=== PATIENT | female | born 1975 | race Caucasian/White ===

== ENCOUNTER 2019-02-21 02:55 | Emergency (ER) | payer OTHER ==
[2019-02-21] MEDS ORDERED: NS 1,000 ML IV ONE (03:08)
[2019-02-21] MEDS ORDERED: ONDANSETRON 4 MG/2 ML VIAL IVP ONE (03:08)
[2019-02-21] MEDS ORDERED: HYDROmorphONE/DILAUDID 2 MG/ML INJ IVP ONE (03:08)
--- NOTE | 2019-02-21 03:08 | EDPHY ---
H & P Stated Complaint: R sided abd pain since yesterday-worse lying down Time Seen by Provider: 02/21/19 03:08 HPI/ROS: HPI CHIEF COMPLAINT: Right-sided abdominal pain HISTORY OF PRESENT ILLNESS: Patient is a 44-year-old female she presents emergency room with right-sided abdominal pain since 529 in the morning yesterday morning or close to 24 hr. She describes as sharp stabbing pain located in the right lower quadrant. She denies any back pain. It is worse when she goes to lay flat or go to do a sit-up. Patient denies any chest pain or shortness of breath. Denies urinary symptoms, denies back pain. Denies fever. Main complaint right-sided lower quadrant abdominal pain. Since arriving to the emergency room is gotten better. She states actually now gone. On exam no obvious hernia. Mildly tender to palpation right lower quadrant. No peritoneal signs. Past Medical History: Denies Past Surgical History: Denies Social History: Denies drugs alcohol tobacco. Family History: Denies ROS REVIEW OF SYSTEMS: 10 Systems were reviewed and negative with the exception of the elements mentioned in the history of present illness. Exam Constitutional triage nursing summary reviewed, vital signs reviewed, awake/ alert. Eyes normal conjunctivae and sclera, EOMI, PERRLA. HENT normal inspection, atraumatic, moist mucus membranes, no epistaxis, neck supple/ no meningismus, no raccoon eyes. Respiratory clear to auscultation bilaterally, normal breath sounds, no respiratory distress, no wheezing. Cardiovascular rate normal, regular rhythm, no murmur, no edema, distal pulses normal. Gastrointestinal mildly tender in the right lower quadrant no rebound, no guarding, normal bowel sounds, no distension, no pulsatile mass. Genitourinary no CVA tenderness. Musculoskeletal no midline vertebral tenderness, full range of motion, no calf swelling, no tenderness of extremities, no meningismus, good pulses, neurovascularly intact. Skin pink, warm, & dry, no rash, skin atraumatic. Neurologic awake, alert and oriented x 3, AAOx3, moves all 4 extremities equally, motor intact, sensory intact, CN II-XII intact, normal cerebellar, normal vision, normal speech. Psychiatric normal mood/affect. Heme/Lymph/Immune no lymphadenopathy. Differential Diagnosis: Differential diagnosis includes but is not limited to and in no particular order: Bowel obstruction, appendicitis, gallbladder disease, diverticulitis, colitis, enteritis, perforated viscus, gastritis, GERD , esophagitis, urinary tract infection, pyelonephritis, kidney stones Medical Decision Making: Plan for this patient IV establishment IV fluid bolus , IV Dilaudid 0.5 mg for pain control IV Zofran 4 mg for nausea, basic labs, CT scan abdomen pelvis with IV contrast. Rule out appendicitis or internal hernia. Re-evaluation: 0523: Patient for his me that she wants to leave. She does not want the CT scan. Given that she is having right-sided abdominal pain I highly recommend she has a CT scan abdomen pelvis with IV contrast rule out appendicitis or other life-threatening acute intra-abdominal pathology. However the patient is refusing this. She states she wants to leave it no longer wants an abdominal pain workup. She denies any current abdominal pain. She understands that by leaving right now not proceed him a CT scan there could be an acute pathology that gives her great morbidity, mortality, or life- threatening process in her abdomen cannot be ruled out like appendicitis or AAA. Patient understands by leaving she put herself at risk of , grave morbidity , neurological dysfunction. She has agreed to sign out against medical advice. Risk and benefits of staying and having CT scan in observation has been discussed with her at length. She has capacity make this decision. She understands the risk of leaving against medical advice. I additionally explained that she 1 welcome to come back any time if she has worsening abdominal pain or changes her mind. Source: Patient - Personal History LMP (Females 10-55): 8-14 Days Ago Current Tetanus Diphtheria and Acellular Pertussis (TDAP): No - Medical/Surgical History Hx Asthma: No Hx Chronic Respiratory Disease: No Hx Diabetes: No Hx Cardiac Disease: No Hx Renal Disease: No Hx Cirrhosis: No Hx Alcoholism: No Hx HIV/AIDS: No Hx Splenectomy or Spleen Trauma: No Other PMH: lyme disease - Social History Smoking Status: Former smoker Constitutional: Initial Vital Signs Temperature (C) 37 C 02/21/19 02:59 Heart Rate 81 02/21/19 02:59 Respiratory Rate 16 02/21/19 02:59 Blood Pressure 146/78 H 02/21/19 02:59 O2 Sat (%) 99 02/21/19 02:59 O2 Delivery Mode Room Air Allergies/Adverse Reactions: No Known Allergies Allergy (Unverified 02/21/19 02:58) Home Medications: Medication Instructions Recorded Herbal Medication For Lymes Disease 01/02/13 Medical Decision Making - Data Points Laboratory Results: Laboratory Results 02/21/19 03:30 02/21/19 03:30 02/21/19 02/21/19 02/21/19 03:30 03:30 03:30 WBC RBC Hgb Hct MCV MCH MCHC RDW Plt Count MPV Neut % (Auto) Lymph % (Auto) Island % (Auto) Eos % (Auto) Baso % (Auto) Nucleat RBC Rel Count Absolute Neuts (auto) Absolute Lymphs (auto) Absolute Monos (auto) Absolute Eos (auto) Absolute Basos (auto) Absolute Nucleated RBC Immature Gran % Immature Gran # PT 13.4 SEC SEC (12.0-15.0) INR 1.06 (0.83-1.16) APTT 31.8 SEC SEC (23.0-38.0) VBG Lactic Acid Sodium 137 mEq/L mEq/L (135-145) Potassium 4.0 mEq/L mEq/L (3.5-5.2) Chloride 107 mEq/L mEq/L (97-110) Carbon Dioxide 21 mEq/l L mEq/l (22-31) Anion Gap 9 mEq/L mEq/L (6-14) BUN 10 mg/dL mg/dL (7-23) Creatinine 0.7 mg/dL mg/dL (0.6-1.0) Estimated GFR > 60 Glucose 108 mg/dL H mg/dL (70-100) Calcium 9.6 mg/dL mg/dL (8.5-10.4) Total Bilirubin 0.8 mg/dL mg/dL (0.1-1.4) Conjugated Bilirubin 0.2 mg/dL mg/dL (0.0-0.5) Unconjugated Bilirubin 0.6 mg/dL mg/dL (0.0-1.1) AST 18 IU/L IU/L (14-46) ALT 34 IU/L IU/L (9-52) Alkaline Phosphatase 58 IU/L IU/L (38-126) Total Protein 6.8 g/dL g/dL (6.3-8.2) Albumin 4.3 g/dL g/dL (3.5-5.0) Lipase 227 IU/L IU/L (23-300) Beta HCG, Qual NEGATIVE 02/21/19 02/21/19 03:30 03:30 WBC 6.70 10^3/uL 10^3/uL (3.80-9.50) RBC 4.10 10^6/uL L 10^6/uL (4.18-5.33) Hgb 14.0 g/dL g/dL (12.6-16.3) Hct 40.1 % % (38.0-47.0) MCV 97.8 fL fL (81.5-99.8) MCH 34.1 pg pg (27.9-34.1) MCHC 34.9 g/dL g/dL (32.4-36.7) RDW 12.6 % % (11.5-15.2) Plt Count 366 10^3/uL 10^3/uL (150-400) MPV 9.1 fL fL (8.7-11.7) Neut % (Auto) 56.1 % % (39.3-74.2) Lymph % (Auto) 31.9 % % (15.0-45.0) Island % (Auto) 9.7 % % (4.5-13.0) Eos % (Auto) 1.2 % % (0.6-7.6) Baso % (Auto) 1.0 % % (0.3-1.7) Nucleat RBC Rel Count 0.0 % % (0.0-0.2) Absolute Neuts (auto) 3.75 10^3/uL 10^3/uL (1.70-6.50) Absolute Lymphs (auto) 2.14 10^3/uL 10^3/uL (1.00-3.00) Absolute Monos (auto) 0.65 10^3/uL 10^3/uL (0.30-0.80) Absolute Eos (auto) 0.08 10^3/uL 10^3/uL (0.03-0.40) Absolute Basos (auto) 0.07 10^3/uL 10^3/uL (0.02-0.10) Absolute Nucleated RBC 0.00 10^3/uL 10^3/uL (0-0.01) Immature Gran % 0.1 % % (0.0-1.1) Immature Gran # 0.01 10^3/uL 10^3/uL (0.00-0.10) PT INR APTT VBG Lactic Acid 1.1 mmol/L mmol/L (0.7-2.1) Sodium Potassium Chloride Carbon Dioxide Anion Gap BUN Creatinine Estimated GFR Glucose Calcium Total Bilirubin Conjugated Bilirubin Unconjugated Bilirubin AST ALT Alkaline Phosphatase Total Protein Albumin Lipase Beta HCG, Qual Medications Given: Discontinued Medications Hydromorphone HCl (Dilaudid) 0.5 mg IVP EDNOW ONE Stop: 02/21/19 03:09 Last Admin: 02/21/19 03:15 Dose: Not Given Sodium Chloride (Ns) 1,000 mls @ 0 mls/hr IV EDNOW ONE; Wide Open PRN Reason: Protocol Stop: 02/21/19 03:09 Last Admin: 02/21/19 03:30 Dose: 1,000 mls Ondansetron HCl (Zofran) 4 mg IVP EDNOW ONE Stop: 02/21/19 03:09 Last Admin: 02/21/19 03:15 Dose: Not Given Departure - Departure Disposition: Against Medical Advice Clinical Impression: Abdominal pain Qualifiers: Abdominal location: right lower quadrant Qualified Code(s): R10.31 - Right lower quadrant pain Condition: Fair Referrals: NONE *PRIMARY CARE P,. [Primary Care Provider] - As per Instructions
[2019-02-21 03:37] LABS: PLATELET COUNT 366 10^3/uL (150-400)
[2019-02-21] MEDS ORDERED: IOPAMIDOL (ISOVUE-300) 100 ML BTL ONE (03:44)
[2019-02-21 03:46] LABS: INR 1.06 (0.83-1.16); PROTIME(PATIENT) 13.4 SEC (12.0-15.0)
[2019-02-21 04:35] VITALS: BP 155/92
== END 2019-02-21 05:31 | disposition left against medical advice (07) ==
DX: R10.31 Right lower quadrant pain (principal); E86.9 Volume depletion, unspecified; Z87.891 Personal history of nicotine dependence
CPT/HCPCS: 96374; J1170; J2405; Q9967